=== PATIENT | female | born 1995 | race Caucasian/White ===

== ENCOUNTER 2019-01-13 06:33 | Outpatient (CLI) | payer BC ==
[~2019-01-13] VITALS: Ht 162.6 cm; Wt 109.1 kg
[~2019-01-13 06:33] MED LIST: ZANTAC 150MG T150 MG PO; ZOFRAN 4MG T4 MG/TAB PO
--- NOTE | 2019-01-13 06:45 | NUR ---
Patient arrives ambulatory with spouse with complaints of contractions since 0500. Patient reports they are every 5 minutes. Denies leaking of fluid, reports some spotting on toilet paper once. Reports normal movement. Changes into gown, EFM explained and placed. VS obtained. SVE unchanged from office and amniotrace negative. Patient repositioned WL and updated on plan of care. 0800- SVE unchanged. Dr. Martines on unit and notified. will come assess patient.
[2019-01-13 06:56] VITALS: BP 136/84; PULSE 102; TEMP 97.7
[2019-01-13 07:30] VITALS: BP 136/84; PULSE 102; TEMP 97.7
--- NOTE | 2019-01-13 08:10 | NUR ---
Dr. Martines on unit and at bedside. Reviewed FHR strip and contraction pattern. Orders to discharge home and return for scheduled induction tomorrow. Patient denies questions.
[2019-01-15] MEDS ORDERED: IBU600 MG PO (08:27)
[2019-01-15] MEDS ORDERED: BREASTPUMP MC (08:29)
== END 2019-01-13 08:25 | disposition home or self-care (01) ==
LOC: LDRO 06:33
DX: O62.9 Abnormality of forces of labor, unspecified (principal); Z3A.40 40 weeks gestation of pregnancy